=== PATIENT | female | born 1985 | race American Indian/Alaskan Native ===

== ENCOUNTER 2016-10-10 09:55 | Inpatient (IN) | payer OTHER, MEDICAID ==
[2016-10-10] MEDS ORDERED: BRETHINE SUB-Q PRN (10:37)
[2016-10-10] MEDS ORDERED: MINERAL OIL PO PRN (10:37)
[2016-10-10] MEDS ORDERED: ePHEDrine SULFATE IV PRN ×2 (10:37→13:31)
[2016-10-10] MEDS ORDERED: BRETHINE IVP PRN (10:37)
[2016-10-10] MEDS ORDERED: XYLOCAINE 2% INFILTRATI ONE (10:37)
[2016-10-10] MEDS ORDERED: SUBLIMAZE IV PRN (10:37)
[2016-10-10] MEDS ORDERED: STADOL IV PRN (10:37)
[2016-10-10] MEDS ORDERED: PITOCin/NS 20 UNIT/1000ML DRIP 20 UNITS/1,000 ML BAG IV SCH (11:00)
[2016-10-10] MEDS ORDERED: PITOCin/NS 30 UNIT/500ML 30 UNITS/500 ML BAG IV SCH (11:00)
[2016-10-10 11:24] LABS: Hematocrit 37.9 % (30.3-42.9); Hemoglobin 12.4 gm/dl (10.1-14.3); Mean Corpuscular HGB Conc 33 % (30-34); Mean Corpuscular Hemoglobin 29 pg (28-32); Mean Corpuscular Volume 90 fl (79-97); Platelet Count 272 K/mm3 (140-440); Red Blood Count 4.23 M/mm3 (3.65-5.03); Red Cell Distribution Width 14.1 % (13.2-15.2); White Blood Count 8.8 K/mm3 (4.5-11.0)
[2016-10-10] MEDS: PITOCin/NS 30 UNIT/500ML 30 UNITS/500 ML BAG IV SCH ×3 (12:30→15:03)
[2016-10-10] MEDS ORDERED: ePHEDrine SULFATE ONE (12:39)
[2016-10-10] MEDS: LACTATED RINGERS 1,000 ML IV SCH ×2 (12:45→15:44)
[2016-10-10] MEDS ORDERED: fentaNYL-BUPIV 2 MCG/ML-0.125% 200 MCG/100 ML BAG EPIDURAL ONE (12:53)
--- NOTE | 2016-10-10 13:05 | History and Physical Report ---
History of Present Illness Date of examination: 10/10/16 Date of admission: 10/10/16 09:55 Chief complaint: SROM-clear fluid at 800 on 10/10/16 History of present illness: 31 yo LMP EDC 10/30/16 @ 37.1 weeks gestation presented to office with s/ o SROM this morning. SROM confirmed and patient sent for induction of labor. Transfer into care at 22 weeks gestation. History of PTD @ 34 weeks, received 17P injections throughout . No complications during this . She is GBS negative Past History Past Medical History: other (blood transfusion age 12 yo after spinal surgery) [employer] History: other (adenomyosis, endometroisis ) Social history: no significant social history, , lives with family - Obstetrical History Expected Date of Delivery: 10/30/16 Actual Gestation: 37 Week(s) 1 Day(s) : 3 Para: 2 Hx # Term Pregnancies: 1 (2012 6lbs Girl) Number of Pregnancies: 1 (2011 6lbs girl) Spontaneous Abortions: 0 Number of Living Children: 2 Medications and Allergies Allergies Allergy/AdvReac Type Severity Reaction Status Date / Time silver Allergy Rash Verified 04/27/13 21:57 [From Tegaderm AG Mesh] Home Medications Medication Instructions Recorded Confirmed Last Taken Type Pnv95/Ferrous Fumarate/FA 1 tab PO DAILY 10/10/16 10/10/16 10/09/16 09:00 History [ Formula Tablet] 1 Sertraline HCl [Sertraline HCl] 1 tab PO DAILY 10/10/16 10/10/16 10/09/16 09:00 History 1 Sertraline [Zoloft] 100 mg PO QDAY 10/10/16 10/10/16 10/09/16 09:00 History 1 Active Meds: Active Medications Butorphanol Tartrate (Stadol) 2 mg IV Q2H PRN PRN Reason: Pain , Severe (7-10) Fentanyl (Sublimaze) 100 mcg IV Q2H PRN PRN Reason: Labor Pain Last Admin: 10/10/16 12:22 Dose: 100 mcg Lactated Ringer's (Lactated Ringers) 1,000 mls @ 125 mls/hr IV DIRECT ALF Last Admin: 10/10/16 12:45 Dose: 125 mls/hr Oxytocin/Sodium Chloride (Pitocin/Ns 20 Unit/1000ml Drip) 20 units in 1,000 mls @ 125 mls/hr IV DIRECT ALF Oxytocin/Sodium Chloride (Pitocin/Ns 30 Unit/500ml) 30 units in 500 mls @ 4 mls /hr IV TITR ALF PRN Reason: Protocol Last Admin: 10/10/16 12:30 Dose: 4 ml/hr, 4 mls/hr Oxytocin/Sodium Chloride (Pitocin/Ns 30 Unit/500ml) 30 units in 500 mls @ 1 mls /hr IV TITR ALF; 1 MILLIUNITS/MIN PRN Reason: Protocol Mineral Oil (Mineral Oil) 30 ml PO QHS PRN PRN Reason: Constipation Review of Systems All systems: negative Genitourinary: normal appearance, leakage of fluid, contractions, no vaginal bleeding - Vital Signs Vital signs: Vital Signs Pulse BP 113 H 112/62 10/10/16 10:14 10/10/16 10:14 Temp Pulse Resp BP Pulse Ox 96.8 F L 103 H 20 118/66 10/10/16 10:39 10/10/16 10:39 10/10/16 12:22 10/10/16 10:39 - Physical Exam Genitourinary (Female): Positive: normal external genitalia - Obstetrical FHR: category 2 Uterine Contraction Monitor Mode: External Cervical Dilatation: 60 station: -2 Results Result Diagrams: 10/10/16 11:00 All other labs normal. Assessment and Plan A: IUP at 37.1 weeks gestation Term PPROM P: Induction of labor
[2016-10-10] MEDS ORDERED: NARCAN 2 MG/2 ML IV PRN (13:31)
--- NOTE | 2016-10-10 13:31 | Anesthesia Consultation ---
Anesthesia Consult and Med Hx Date of service: 10/10/16 - Airway Anesthetic Teeth Evaluation: Good ROM Head & Neck: Adequate Mental/Hyoid Distance: Adequate Mallampati Class: Class II Intubation Access Assessment: Probably Good - Pre-Operative Health Status ASA Pre-Surgery Classification: ASA3 Proposed Anesthetic Plan: Epidural, Spinal - Pulmonary Hx Asthma: No COPD: No Hx Pneumonia: No - Cardiovascular System Hx Hypertension: No - Central Nervous System Hx Seizures: No Hx Back Pain: Yes (s/p Regan's rods) Hx Psychiatric Problems: No - Endocrine Hx Renal Disease: No Hx End Stage Renal Disease: No Hx Hypothyroidism: No Hx Hyperthyroidism: No - Hematic Hx Anemia: No Hx Sickle Cell Disease: No - Other Systems Hx Alcohol Use: No Hx Obesity: Yes (BMI 40.4)
[2016-10-10] MEDS ORDERED: fentaNYL-BUPIV 2 MCG/ML-0.125% 200 MCG/100 ML BAG EPIDURAL SCH (14:00)
--- NOTE | 2016-10-10 16:34 | Procedure Note ---
OB Delivery Note - Delivery Date of Delivery: 10/10/16 (6-13oz female @ 1615) Surgeon: KT BENAVIDES Estimated blood loss: 100cc - Vaginal Delivery presentation: vertex Delivery position: OA Delivery induction: oxytocin Delivery monitor: external FHT, external uterine Delivery placenta: spontaneous Delivery cord: 3 umbilical vessels Delivery laceration: 1st degree (vaginal, approximates well, not bleeding, not repaired) Anesthesia: epidural - Infant A at 1 minute: 8 at 5 minutes: 9 Infant Gender: Female ( viable female. Bulb suctioned and placed skin to skin. Spont. placenta, Pitocin infusing. Bleeding scant FF 3 below U, ML)
[2016-10-10] MEDS ORDERED: DULCOLAX PR PRN (19:48)
[2016-10-10] MEDS ORDERED: SODIUM CHLORIDE FLUSH SYRINGE 10 ML IV NR (19:48)
[2016-10-10] MEDS ORDERED: BENADRYL PO PRN (19:48)
[2016-10-10] MEDS ORDERED: PHENERGAN PR PRN (19:48)
[2016-10-10] MEDS ORDERED: TYLENOL PO PRN (19:48)
[2016-10-10] MEDS ORDERED: LANSINOH TP PRN (19:48)
[2016-10-10] MEDS ORDERED: ZOFRAN IV PRN (19:48)
[2016-10-10] MEDS ORDERED: MILK OF MAGNESIA PO PRN (19:48)
[2016-10-10] MEDS ORDERED: DERMOPLAST TP PRN (19:48)
[2016-10-10] MEDS: MOTRIN PO SCH (20:02)
[2016-10-10] MEDS: TUCKS PAD TP PRN (20:07)
[2016-10-10] MEDS: NORCO 5/325 PO PRN (21:11)
[2016-10-11] MEDS: NORCO 5/325 PO PRN (04:53)
[2016-10-11] MEDS: MOTRIN PO SCH ×2 (04:58→08:00)
[2016-10-11] MEDS ORDERED: M-M-R II VACCINE SUB-Q ONE (06:00)
[2016-10-11] MEDS ORDERED: BOOSTRIX IM ONE (06:00)
[2016-10-11 07:38] LABS: Hematocrit 35.4 % (30.3-42.9)
--- NOTE | 2016-10-11 08:31 | Progress Note ---
Assessment and Plan PPD#1 s/p ambulating well bleeidng decreased rx for zoloft as she was presently on meds ( will talk to peds about breast feeding) bonding with baby no s/sx of si nor Hi indciations h/h stable 12.4/37.9--12/35.4 abdominal binder scheduled pain meds continue routine orders Subjective - Subjective Date of service: 10/11/16 Principal diagnosis: s/p Patient reports: appetite normal, voiding normally, pain well controlled, ambulating normally : doing well, nursing well Objective - Vital Signs Latest vital signs: Vital Signs Temp Pulse Pulse Resp BP BP Pulse Ox 10/11/16 04:53 18 10/11/16 04:15 98.4 F 98 H 20 128/63 10/11/16 00:00 98.2 F 105 H 20 124/67 10/10/16 20:00 98.3 F 97 H 20 123/81 10/10/16 18:55 105 H 135/67 10/10/16 18:24 93 H 122/67 10/10/16 18:17 92 H 130/71 10/10/16 17:57 92 H 115/60 10/10/16 16:55 83 111/70 10/10/16 16:25 92 H 111/58 10/10/16 15:55 83 117/71 10/10/16 15:25 82 107/55 10/10/16 15:15 85 100 10/10/16 15:10 84 99 10/10/16 15:05 84 100 10/10/16 15:00 88 100 10/10/16 14:58 93 H 72 L 10/10/16 14:55 92 H 111/59 100 10/10/16 14:49 84 100 10/10/16 14:44 88 98 10/10/16 14:43 101 H 94 10/10/16 14:39 90 100 10/10/16 14:34 91 H 100 10/10/16 14:33 89 78 L 10/10/16 14:29 99 H 99 10/10/16 14:27 81 128/72 10/10/16 14:24 92 H 97 10/10/16 14:19 92 H 99 10/10/16 14:14 93 H 98 10/10/16 14:09 96 H 99 10/10/16 14:04 91 H 99 10/10/16 13:59 87 100 10/10/16 13:56 88 129/69 10/10/16 13:54 92 H 100 10/10/16 13:52 91 H 44 L 10/10/16 13:49 87 100 10/10/16 13:44 86 99 10/10/16 13:39 95 H 100 10/10/16 13:34 93 H 99 10/10/16 13:29 92 H 100 10/10/16 13:25 91 H 124/68 10/10/16 13:24 90 100 10/10/16 13:23 93 H 113/77 10/10/16 13:19 87 100 10/10/16 13:18 83 124/64 10/10/16 13:17 100 H 93 10/10/16 13:13 90 116/65 10/10/16 13:12 95 H 100 10/10/16 13:07 91 H 111/67 100 10/10/16 12:22 20 10/10/16 10:39 96.8 F L 103 H 103 H 20 118/66 118/66 10/10/16 10:14 113 H 112/62 Intake and Output 10/10/16 10/11/16 10/11/16 22:59 06:59 14:59 Intake Total 1240 240 Output Total 800 502 Balance 440 -262 Intake: IV 1000 Lactated Ringers 1,000 ml 1000 @ 125 mls/hr IV DIRECT ALF Rx#:[id number] Oral 240 240 Output: Urine 800 Void 800 Urine/Stool Mix 500 Pad Count 2 Other: Total, Intake Amount 240 240 Total, Output Amount 800 200 # Voids Void 1 Estimated Blood Loss 200 - Exam Breasts: Present: normal Cardiovascular: Present: Regular rate, Normal S1 Lungs: Present: Clear to auscultation, Normal air movement Abdomen: Present: normal appearance, soft, normal bowel sounds. Absent: distention, tenderness Vulva: both: normal Uterus: Present: normal, firm, fundal height below umbilicus (4cm below ). Absent: bogginess, tenderness Extremities: Present: normal Deep Tendon Reflex Grade: Normal +2
[2016-10-11] MEDS: PERCOCET 5/325 PO PRN ×4 (09:34→22:27)
[2016-10-11] MEDS: PRENATAL VITAMIN PO SCH (10:15)
--- NOTE | 2016-10-11 10:30 | Progress Note ---
Subjective Date of service: 10/11/16 Principal diagnosis: s/p Interval history: 1st day after normal vaginal delivery Patient is in the bed, comfortable. Pain is well under control. Ambulated well. No residual neurological deficit. No anesthesia complications Objective - Constitutional Vitals: Vital Signs - 12hr 10/11/16 10/11/16 10/11/16 00:00 04:15 04:53 Temperature 98.2 F 98.4 F Pulse Rate [ 105 H 98 H Left From Monitor] Pulse Rate [ Right] Respiratory 20 20 18 Rate Blood Pressure 124/67 128/63 [Left Arm] Blood Pressure [Right Arm] 10/11/16 10/11/16 08:25 09:34 Temperature 98 F Pulse Rate [ Left From Monitor] Pulse Rate [ 100 H Right] Respiratory 20 20 Rate Blood Pressure [Left Arm] Blood Pressure 102/72 [Right Arm] - Labs CBC & Chem 7: 10/11/16 06:59
[2016-10-11] MEDS: TUCKS PAD TP PRN (20:20)
[2016-10-11] MEDS: ZOLOFT PO SCH (22:59)
[2016-10-12] MEDS: MOTRIN PO SCH ×3 (00:14→14:12)
[2016-10-12] MEDS: PERCOCET 5/325 PO PRN ×3 (05:41→14:11)
[2016-10-12] MEDS: ZOLOFT PO SCH (10:28)
[2016-10-12] MEDS: PRENATAL VITAMIN PO SCH (10:28)
--- NOTE | 2016-10-12 14:59 | Progress Note ---
Assessment and Plan PPD 2 s/p . doing well except for complaints of pelvic girdle pain. Patient advised to wear binder or lower pelvic support garment to help stabilize pelvic bones. Patient ready to be discharged today. Subjective - Subjective Date of service: 10/12/16 Principal diagnosis: s/p Patient reports: appetite normal, voiding normally, pain poorly controlled ( patient has complaint of pubic bone and pelvic girdle pain), ambulating normally [place]: doing well Objective - Vital Signs Latest vital signs: Vital Signs Temp Pulse Pulse Resp BP 10/12/16 08:06 97.7 F 74 18 100/58 10/12/16 05:42 20 10/12/16 05:41 20 10/11/16 22:27 20 10/11/16 20:15 98.3 F 88 20 120/64 10/11/16 18:15 20 10/11/16 16:40 97.6 F 93 H 93 H 20 104/62 Intake and Output 10/11/16 10/12/16 10/12/16 22:59 06:59 14:59 Intake Total 360 240 Balance 360 240 Intake: Oral 360 240 Other: Total, Intake Amount 360 240 # Voids Void 1 1 - Exam Cardiovascular: Present: Regular rate, Normal S1, Normal S2 Lungs: Present: Clear to auscultation, Normal air movement Abdomen: Present: normal appearance, soft, normal bowel sounds Uterus: Present: normal, firm, fundal height below umbilicus Extremities: Present: normal Deep Tendon Reflex Grade: Normal +2
--- NOTE | 2016-10-12 15:00 | Discharge Summary ---
Providers - Providers Date of Admission: 10/10/16 09:55 Date of discharge: 10/12/16 Attending physician: CAROLINE SOMERS Primary care physician: CAROLINE SOMERS Hospitalization Reason for admission: active labor Delivery: Laceration: none complications: none Discharge diagnosis: IUP at term delivered baby: female Condition at discharge: Good Disposition: DISCHARGED TO HOME OR SELFCARE Plan - Discharge Medications Prescriptions: Ibuprofen [Motrin] 600 mg PO Q8H PRN #30 tablet PRN Reason: Pain oxyCODONE /ACETAMINOPHEN [Percocet 5/325] 1 tab PO Q6HR PRN #30 tablet PRN Reason: Pain Sertraline [Zoloft] 100 mg PO QDAY #30 tablet - Provider Discharge Summary Activity: routine, no sex for 6 weeks, no heavy lifting 4 weeks, no strenuous exercise Diet: routine Instructions: routine Additional instructions: [] Smoking cessation referral if applicable(refer to patient education folder for contact #) [] Refer to [employer] Booklet Call your doctor immediately for: * Fever > 100.5 * Heavy vaginal bleeding ( >1 pad per hour) * Severe persistent headache * Shortness of breath * Reddened, hot, painful area to leg or breast * Drainage or odor from incision. * Keep incision clean and dry at all times and follow doctor's instructions regarding bathing/showering - Follow up plan Follow up: CAROLINE SOMERS MD [Primary Care Provider] - 7 Days
[2016-10-12 17:07] VITALS: BP 126/64
== END 2016-10-12 15:55 | disposition home or self-care (01) | DRG 775 ==
LOC: LD 09:55 → OB 19:53
PROVIDERS: ADMIT Obstetrics & Gynecology; ATTEND Obstetrics & Gynecology
PROC: 10E0XZZ Delivery of Products of Conception, External Approach (ICD-10-PCS; principal; 2016-10-10)
PROC: 3E033VJ Introduction of Other Hormone into Peripheral Vein, Percutaneous Approach (ICD-10-PCS; 2016-10-10)
PROC: 3E0S3CZ (ICD-10-PCS; 2016-10-10)
PROC: 00HU33Z Insertion of Infusion Device into Spinal Canal, Percutaneous Approach (ICD-10-PCS; 2016-10-10)
DX: O42.02 Full-term premature rupture of membranes, onset of labor within 24 hours of rupture (principal); O99.214 Obesity complicating childbirth; Z68.41 Body mass index [BMI] 40.0-44.9, adult; Z3A.37 37 weeks gestation of pregnancy; Z37.0 Single live birth; O70.0 First degree perineal laceration during delivery
CPT/HCPCS: 36415; 85014; 85018; 85027; 86850; 86900; 86901; 99211; A6250; G0463; J2590; J3010; J7120